=== PATIENT | female | born 1995 | race Caucasian/White ===

== ENCOUNTER 2022-02-12 03:49 | Outpatient (CLI) | payer OTHER, SELFPAY ==
[2022-02-13 10:29] LABS: Lyme Ab w Rflx to Lyme Confirm Negative (Negative)
[2022-02-14 10:37] LABS: Anaplasma phagocytophilum Negative (Negative); B. miyamotoi PCR Negative (Negative); Babesia divergens/MO-1 Negative (Negative); Babesia duncani Negative (Negative); Babesia microti Negative (Negative); Ehrlichia chaffeensis Negative (Negative); Ehrlichia ewingii/canis Negative (Negative); Ehrlichia muris eauclairensis Negative (Negative)
== END 2022-02-12 03:50 | disposition home or self-care (01) ==
LOC: LOS 03:49
PROVIDERS: Visit Provider Nurse Practitioner Family
DX: A69.20 Lyme disease, unspecified (principal)
CPT/HCPCS: 36415; 87798; 86618

== ENCOUNTER 2022-03-19 09:57 | Outpatient (REF) | payer OTHER, SELFPAY ==
--- NOTE | 2022-03-19 08:30 | PAPFT_PTH ---
PATIENT: Davina Link LOC: [facility] U#:[id number] AGE/SX: 26/F ROOM: RE03/19/[address]: Swati Sagastume DO : 1995 BED: DIS: 03/19/2022 SPEC #: [id number] RECD: 03/19/22 12:53 STATUS: JYOTI REQ #: [id number] PRIYANK: 03/19/22 08:[address]: Swati Sagastume DEPT: [facility] Cytology RECD BY: Luiza Shea ENTERED: 03/19/22 12:53 SP TYPE: PAPFT OTHR DR: Unknown,Unknown Tissues: 1 - CX/ENDOCX FOR PAP SMEARS Procedures: PAP THIN PREP/UVM Screening Comments: [id number] (CHLAMYDIA/GC)
[2022-03-20 14:50] LABS: Chlamydia Result Negative (Negative); GC Result Negative (Negative)
== END 2022-03-19 09:58 | disposition home or self-care (01) ==
LOC: LBN 09:57
PROVIDERS: Visit Provider Obstetrics & Gynecology
DX: Z11.3 Encounter for screening for infections with a predominantly sexual mode of transmission (principal); Z12.4 Encounter for screening for malignant neoplasm of cervix; R87.612 Low grade squamous intraepithelial lesion on cytologic smear of cervix (LGSIL)
CPT/HCPCS: 87491; 87591; 88142

== ENCOUNTER 2022-04-23 10:51 | Outpatient (REF) | payer OTHER, SELFPAY ==
--- NOTE | 2022-04-23 10:00 | ENDO_PTH ---
PATIENT: Davina Link LOC: LBN U#:[id number] AGE/SX: 26/F ROOM: RE04/23/[address]: Swait Sagastume DO : 1995 BED: DIS: 04/23/2022 SPEC #: [id number] RECD: 04/23/22 13:00 STATUS: JYOTI REQ #: [id number] PRIYANK: 04/23/22 10:[address]: Swati Sagastume DEPT: Surgical Specimen RECD BY: Luiza Shea ENTERED: 04/23/22 13:00 SP TYPE: Endo OTHR DR: Unknown,Unknown Tissues: 1 - ENDOCERVICAL BX/CURRETTE 2 - CERVICAL BIOPSY Procedures: GROSS AND MICRO LEVEL 4 Comments: [id number]
--- OUTSIDE RECORDS SUMMARY | 2022-04-23 10:55 | XMS_ITS | Encounter Summary ---
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
--- OUTSIDE RECORDS SUMMARY | 2022-04-23 10:55 | XMS_ITS | Encounter Summary ---
:1995 Author Organization [facility] Address [address] [place] [address] Care Team Providers Name Role Phone Davina Johnson MD Primary Care Provider [phone] Encounter Details Date Type Department Care Team Description 03/19/2022 Lab Requisition [facility] Swati Sagastume Encounter for other Pathology & [address] [place] [address] Dr general examination Laboratory Medicine [facility] [address] [address] [facility] [phone] [place] [address] (Work) [phone] Social History Tobacco Use Types Packs/Day Years Used Date Never Smoker Smokeless Tobacco: Never Used Alcohol Use Standard Drinks/Week Comments Yes 0 (1 standard drink = 0.6 oz pure alcoho l) rarely Alcohol Habits Answer Date Recorded How often do you have a drink containing alcohol? Not asked How many drinks containing alcohol do you have on a typical Not asked day when you are drinking? How often do you have six or more drinks on one occasion? No t asked Comment: rarely 03/16/2019 Sex Assigned at Date Recorded Not on file documented as of this encounter Plan of Treatment Not on filedocumented as of this encounter Procedures Procedure Name Priority Date/Time Associated Diagnosis Comme nts PAP TEST Today 03/19/2022 8:30 Encounter for other Resul ts for this EDT general examination procedur e are in the results section. CHLAMYDIA/N. Today 03/19/2022 8:30 Results for this GONORRHOEAE EDT procedure are i n AMPLIFIED RNA, the results THINPREP section. documented in this encounter Results PAP TEST (03/19/2022 8:30 EDT) Specimens A. Cervix and/or [facility] Endocervix , ThinPrep CENTER Imaging System with LABORATORY Manual Evaluation SERVICES Specimen Adequacy Satisfactory for [facility] Evaluation - CENTER transformation zone LABORATORY component present SERVICES General Epithelial Cell [facility] Categorization Abnormality CENTER LABORATORY SERVICES Descriptive Squamous Cell [facility] Diagnosis Abnormality - Low CENTER grade squamous LABORATORY intraepithelial SERVICES lesion (LSIL). Educational Comments [facility] recommends following t he ASCP's management guidelines which may be found at www.ascp.org [facility] Attestation By the signature below, the attending physician certifies that they have personally conducted a gross and/or microscopic [facility] Electronically examination of the described specimens and rendered or confirmed the above diagnosis. CENTER signed by ZINA Sweet MD on SERVICES 03/26/2022 at 09 32 Clinical History See below [facility] Performing Lab [facility] LAB [facility] Scanned Images [facility] Specimen Pap Test - Cervix and/or Endocervix Performing Organization Address City/State/ZIP Code Phon e Number [facility] [address] [place] [address] SERVICES CHLAMYDIA/N. GONORRHOEAE AMPLIFIED RNA, THINPREP (03/19/2022 8:30 EDT) Pathologist Sig nature Gonococcus Result Negative Negative [facility] Chlamydia Result Negative Negative [facility] Specimen Pap Test - Cervix and/or Endocervix Performing Organization Address City/State/ZIP Code Phon e Number [facility] [address] [place] [address] SERVICES documented in this encounter Visit Diagnoses Diagnosis Encounter for other general examination documented in this encounter Care Teams Certified Nurse Aide Relationship Specialty Start Date End Date Davina Johnson MD PCP - General 08/19/20 documented as of this encounter
--- OUTSIDE RECORDS SUMMARY | 2022-04-23 10:55 | XMS_ITS | Encounter Summary ---
:1995 Author Organization [facility] Address [address] [place] [address] Care Team Providers Name Role Phone Unknown, Provider Primary Care Provider Reason for Referral Consult (3 - 10 Business Days) - Denied Specialty Diagnoses / Procedures Referred By Contact Refer red To Contact Orthopedic Surgery Diagnoses Laceration of left index finger without foreign body without damage to nail, initial encounter Cassius Thakur [facility] NABEEL Cruz Extremity [id number] [place] [address] Referral ID Status Reason Start Date Expiration Date Visits V isits Requested Authorized [id number] Denied Specialty 03/16/2019 1 0 Services Required Question Answer Reason for Request: finger laceration, possible digital nerve injury Reason for Visit Reason Comments Laceration Patient arrives s/p lac to r ing finger on left hand sustained while depitting an avacado. lac is approx 1cm in length. 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 Washed with soap and wa ter in triage and applied pressure bandage. VSS. NAD. Encounter Details Date Type Department Care Team Description 03/16/2019 Emergency [facility] Cassius Thakur PA-C [address] [facility] [address] [place] [address] Laceration of left index Emergency Department - Emergency, Default, MD finger without foreign [facility] [place] body without damage to [address] nail, [place] [address] (Primary Dx) [phone] Social History Tobacco Use Types Packs/Day Years [...] on file documented as of this encounter Last Filed Vital Signs Vital Sign Reading Time Taken Comments Blood Pressure 126/71 03/16/2019 2224 EDT Pulse - - Temperature 37 ??C (98.6 ??F) 03/16/2019 2224 EDT Respiratory Rate 18 03/16/2019 2224 EDT Oxygen Saturation 100% 03/16/2019 2224 EDT Inhaled Oxygen Concentration - - Weight 54.4 kg (120 lb) 03/16/2019 2224 EDT Height 167.6 cm (5' 6) 03/16/2019 2224 EDT Body Mass Index 19.37 03/16/2019 2224 EDT documented in this encounter Discharge Diagnoses Diagnosis S61.211A Laceration without foreign body of left index finger without damage to nail, initial encounter-S61.211A[ICD-10-CM] W45.8XXA Other foreign body or object en tering through skin, initial encounter-W45.8XXA[ICD-10-CM] documented in this encounter Discharge Instructions InstructionsMoeros Moore, KISHORE Borrego - 03/16/[address] for the first 12 hours. Wash area daily with soap and water. Apply vaseline daily until sutures are removed. Return to the ER if the area becomes red, painful, swollen, has pus/foul smelling discharge, or if any fever. Suture removal in 7 days Orthopedics will call you for follow up appointment Call your doctor tomorrow to make sure you have had a tetanus shot in the past 10 years Once sutures are removed avoid sun exposure to the area. You can apply sunscreen daily. It will exru74-57 months for the final scar to form. During that time of continued healing you may experience mild tingling, itchiness, or even mild discomfort over the wound site documented in this encounter Medications at Time of Discharge Medication Sig Dispensed Refills Start Date End Date LORazepam (ATIVAN) 1 mg Take 1 mg by mouth 0 tablet every 4 hours as needed for Anxiety. paroxetine (PAXIL) 20 mg Take 10 mg by mouth 0 tablet daily. documented as of this encounter Discharge Disposition Disposition Code Departure Means Destination Home or Self Care Car Home documented in this encounter ED Notes Blaze Moore, KISHORE Borrego - 03/16/2019 2333 EDT DOS: 03/16/2019 Chief Complaint Patient presents with ??? Laceration Patient arrives s/p lac to ring finger on left hand sustained while depitting an avacado. lac is approx 1cm in length. 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 Washed with soap and water in triage and applied pressure bandage. VSS. NAD. HPI The patient is a 23 y.o. female who presents today with Laceration (Patient arrives s/p lac to ring finger on left hand sustained while depitting an avacado. lac is approx 1cm in length. 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 Washed with soap and water in triage and applied pressure bandage. VSS. NAD. ) HPI 23 yo female with a left index finger lac she sustained just prior to arrival while slicing an avocado. She notes some tingling distal to the wound. She has no weakness. Unsure of last tetanus. Review of Systems Review of Systems see above The patient's past medical, family and social history was reviewed and updated as needed. No Known Allergies Vital Signs Temp: 37 ??C (98.6 ??F) Heart Rate: 67 BPM Resp: 18 SpO2: 100 % BP: 126/71 BP Device: BP Machine Patient Position: Sitting BP Cuff Location: Right arm O2 Device: None (Room air) Physical Exam Alert oriented, appears comfortable Left 4th finger with 1 cm laceration along radial aspect. No tendon injury. ?nerve laceration. Sensation distally is diminished. Strength is 5/5 at dip and pip joints. RESULTS EKG orders: None Radiology orders: None Procedures Area prepped with betadine. Lidocaine 3cc Used for anesthesia with a digital block. . Wound explored, no foreign body identified. Wound irrigated with normal saline under high pressure syringe. Wound successfully closed with 3, 5.0 Nylon sutures applied with simple interrupted technique. Bacitracin and dressing applied by the nursing staff. ED COURSE A medical screening exam was performed. Patient with a finger laceration. She has no signs of tendoninjury but may have a digital nerve injury. Wound was closed. Ortho referral placed for further eval. She will call her pcp to ensure tetanus is up to date. Wound care and return precautions were discussed. Final diagnoses: Laceration of left index finger without foreign body without damage to nail, initial encounter DISPOSITION: No disposition on file The patient's pain was managed to an adequate level weighing risk vs. benefit of further medications. Upon departure from the Emergency Department, the patient's pain was 0 on a zero to ten scale. Any further pain treatment will be at the discretion of the provider following up with the patient based on their clinical assessment. Condition at departure from the Emergency Department: Stable PCP: Doctor Unknown BEN Madrigal was available for supervision. 03/16/2019 23:33 No flowsheet data found. documented in this encounter Plan of Treatment Scheduled Referrals Name Type Priority Associated Order Schedule Diagnoses AMB CONS/FOLLOW UP Outpatient Referral Routine Laceration of l eft Ordered: ORTHOPEDICS index finger 03/16/2019 without foreign body without damage to nail, initial encounter documented as of this encounter Visit Diagnoses Diagnosis Laceration of left index finger without foreign body without damage to nail, initial encounter - Primary documented in this encounter Historical Medications This list may reflect changes made after this encounter. Medication Sig Dispensed Refills Start Date End Date LORazepam (ATIVAN) 1 mg Take 1 mg by mouth 0 tablet every 4 hours as needed for Anxiety. paroxetine (PAXIL) 20 mg Take 10 mg by mouth 0 tablet daily. added in this encounter Care Teams Joiner Relationship Specialty Start Date End Date Unknown, Provider, PCP - General 06/23/18 08/18/20 documented as of this encounter
--- OUTSIDE RECORDS SUMMARY | 2022-04-23 10:55 | XMS_ITS | Encounter Summary ---
:1995 Author Organization Health system Address [address] [place] [address] Care Team Providers Name Role Phone Davina Johnson MD Primary Care Provider [phone] Encounter Details Date Type Department Care Team Description 02/12/2022 Lab Requisition [facility] Outr Resulting Lab, Pathology & Laboratory Provider [facility] [address] [place] [address] Social History Tobacco Use Types Packs/Day Years [...] Name Priority Date/Time Associated Diagnosis Comme nts LYME AB Routine 02/12/2022 8:48 EDT Results for this procedure are i n the results section . documented in this encounter Results LYME AB (02/12/2022 8:48 EDT) Pathologist Sig nature Lyme Ab Negative Negative [facility] LABORATOR Y SERVICES Specimen Blood - Venous blood (substance) Performing Organization Address City/State/ZIP Code Phon e Number [facility] [address] [place] [address] SERVICES documented in this encounter Visit Diagnoses Not on filedocumented in this encounter Care Teams Aircraft Engine Mechanic Overhaul Relationship Specialty Start Date End Date Davina Johnson MD PCP - General 08/19/20 documented as of this encounter
--- OUTSIDE RECORDS SUMMARY | 2022-04-23 10:55 | XMS_ITS | Encounter Summary ---
:[address] [facility] Address [address] [place] [address] Care Team Providers Name Role Phone Davina Johnson MD Primary Care Provider [phone] Reason for Visit Reason Onset Date Comments Other 09/09/2020 Referral Encounter Details Date Type Department Care Team Description 09/09/2020 Telephone [facility] Unknown, Provider, Oth er (Referral) Neurology - S Luly escoto MD [address] [place] [address] [phone] Social History Tobacco Use Types Packs/Day Years [...] Assigned at Date Recorded Not on file COVID-19 Exposure Response Date Recorded In the last month, have you been in contact with No / Unsure 09/03/2020 2:17 EST someone who was confirmed or suspected to have Coronavirus / COVID-19? documented as of this encounter Miscellaneous Notes Telephone Encounter - Lalita Doran - 09/09/2020 1600 EST Spoke with Gary wanted to verify referral was received. It was received in April NPV sent patientnever mailled back. Explained presently not taking any new patients until December. documented in this encounter Plan of Treatment Not on filedocumented as of this encounter Visit Diagnoses Not on filedocumented in this encounter Care Teams Vba Programmer Relationship Specialty Start Date End Date Davina Johnson MD PCP - General 08/19/20 documented as of this encounter
--- OUTSIDE RECORDS SUMMARY | 2022-04-23 10:55 | XMS_ITS | Encounter Summary ---
:1995 Author Organization [facility] Address [address] [place] [address] Care Team Providers Name Role Phone Davina Johnson MD Primary Care Provider [phone] Encounter Details Date Type Department Care Team Description 09/03/2020 Travel Social History Tobacco Use Types Packs/Day Years [...] / COVID-19? documented as of this encounter Plan of Treatment Not on filedocumented as of this encounter Visit Diagnoses Not on filedocumented in this encounter Care Teams Manager Oncology Relationship Specialty Start Date End Date Davina Johnson MD PCP - General 08/19/20 documented as of this encounter
--- OUTSIDE RECORDS SUMMARY | 2022-04-23 10:55 | XMS_ITS | Encounter Summary ---
:1995 Author Organization [facility] Address [address] [place] [address] Care Team Providers Name Role Phone Unknown, Provider Primary Care Provider Davina Johnson MD Primary Care Provider [phone] Encounter Details Date Type Department Care Team Description 05/22/2020 Lab Requisition [facility] Tulio Tavarez, Encounter for Pathology & IT INFRASTRUCTURE CONSULTANT gynecological Laboratory Medicine [address] [facility] - [address] (routine) without [address] [facility] [address] abnormal findings [address] [address] Social History Tobacco Use Types Packs/Day Years [...] file documented as of this encounter Discharge Disposition Disposition Code Departure Means Destination Home or Self Care documented in this encounter Plan of Treatment Not on filedocumented as of this encounter Procedures Procedure Name Priority Date/Time Associated Diagnosis Comme nts PAP TEST Today 05/22/2020 14:21 Encounter for Results fo r this EDT gynecological procedure are in examination (general) the re sults (routine) without section. abnormal findings [ICD-10-CM] documented in this encounter Results PAP TEST (05/22/2020 14:21 EDT) Specimens A. Cervix and/or [facility] Endocervix , ThinPrep CENTER Imaging System with LABORATORY Manual Evaluation SERVICES Specimen Adequacy Satisfactory for [facility] Evaluation - CENTER transformation zone LABORATORY component present SERVICES General Negative for [facility] intraepithelial COMPTON lesion or malignancy LABORATORY SERVICES Attestation . [facility] Electronically CENTER signed by Devin oliver LABORATORY EVARISTO Ghosh(A SCP) SERVICES on 06/03/2020 at 0815 Scanned Images [facility] SERVICES Specimen Pap Test - Cervix and/or Endocervix Performing Organization Address City/State/[facility] Code Phon e Number [facility] [address] [place] [address] SERVICES documented in this encounter Visit Diagnoses Diagnosis Encounter for gynecological examination (general) (routine) without abnormal findings documented in this encounter Care Teams Upsetting Machine Operator Relationship Specialty Start Date End Date Unknown, Provider, PCP - General 06/23/18 08/18/20 Davina Johnson MD PCP - General 08/19/20 documented as of this encounter
--- OUTSIDE RECORDS SUMMARY | 2022-04-23 10:55 | XMS_ITS | Encounter Summary ---
:1995 Author Organization [facility] Address [address] [place] [address] Care Team Providers Name Role Phone Unknown, Provider Primary Care Provider Reason for Visit Auth/Cert Specialty Diagnoses / Procedures Referred By Contact Refer red To Contact Referral ID Status Reason Start Date Expiration Date Visits Requ ested Visits Authorized [id number] 1 1 Encounter Details Date Type Department Care Team Description 08/08/2020 - Hospital Encounter [facility] Cassie Joyce 08/13/2020 Inpatient Psychiatry MD [facility] [address] [place] [address], [facility] [address] [place] [address] (Wo rk) Social History Tobacco Use Types [...] on file documented as of this encounter Medications at Time of Discharge Medication Sig Dispensed Refills Start Date End Date LORazepam (ATIVAN) 1 mg Take 1 mg by mouth 0 tablet every 4 hours as needed for Anxiety. paroxetine (PAXIL) 20 mg Take 10 mg by mouth 0 tablet daily. documented as of this encounter Discharge Disposition Disposition Code Departure Means Destination Home or Self [place] documented in this encounter Plan of Treatment Not on filedocumented as of this encounter Procedures Procedure Name Priority Date/Time Associated Diagnosis Comme nts ORDERS - SCANNED 10/08/2020 11:51 EST PATHOLOGY - SCANNED 10/08/2020 11:50 EST ECG REPORT - 10/08/2020 11:50 SCANNED EST ECG REPORT - 09/30/2020 9:39 EST SCANNED EKG 12-LEAD 08/09/2020 9:49 EST Results for this procedure are i n the results section. documented in this encounter Results PATHOLOGY - SCANNED (10/08/2020 11:50 EST) Specimen Narrative This result has an attachment that is no t available. EKG 12-LEAD (08/09/2020 9:49 EST) Specimen Narrative [facility] EKG - 09/30/2020 9:34 EST ? [facility] ? Test Date: ?2020-08-09 Pat Name: ? YELENA GOMES ?Department: ?? [facility] ? Room: ? Gender: ? Female ? Check Services Clerk: ?? [id number] : ?1995 ? Requested By: MARY TENA MD Order Number: ?Reading : ?? BEVERLEY COPELAND MD ? Measurements Intervals ?[place] ? Rate: ? 69 ? P: ?67 NV: ? 133 ?QRS: ?79 QRSD: ? 76 ? T: ?60 QT: ? 400 ? QTc: ?430 ? Interpretive Statements SINUS RHYTHM Automated Interpretation. ??Provider Int erpretation to follow. No previous ECG available for comparison I reviewed the tracing and have either a greed or edited the findings in this report. Electronically Signed On 9:34:59 EST by BEVERLEY COPELAND MD. Procedure Note Beverley Copeland MD - 09/30/2020 [facility] Test Date: 2020-08-09 Pat Name: YELENA GOMES Department: EP 6 Room: Gender: Female Check Services Clerk: [id number] : 1995 Requested By: MARY SCHMIDT MD Order Number: Reading MD: BEVERLEY MOYA MD Measurements Intervals [place] Rate: 69 P: 67 NV: 133 QRS: 79 QRSD: 76 T: 60 QT: 400 QTc: 430 Interpretive Statements SINUS RHYTHM Automated Interpretation. Provider Inter pretation to follow. No previous ECG available for comparison I reviewed the tracing and have either a greed or edited the findings in this report. Electronically Signed On 9:34:59 EST by BEVERLEY COPELAND MD. Performing Organization Address City/State/ZIP Code Phon e Number [facility] EKG documented in this encounter Visit Diagnoses Not on filedocumented in this encounter Orders Procedures Count Last Ordered Date First Ordered Date ECG REPORT - SCANNED 2 10/15/2020 09/30/2020 Admission Count Last Ordered Date First Ordered Date ORDERS - SCANNED 1 10/15/2020 documented in this encounter Care Teams Jig Boring Machine Operator For Metal Relationship Specialty Start Date End Date Unknown, Provider, PCP - General 06/23/18 08/18/20 documented as of this encounter
--- OUTSIDE RECORDS SUMMARY | 2022-04-23 10:55 | XMS_ITS | Encounter Summary ---
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 section. POCT CSN BARCODE STAT 09/03/2020 4:53 EST Resu lts for this URINE PREG TEST procedure ar e in the results section. documented in this encounter Results COVID-19 TEST [facility] LAB PCR (09/03/2020 6:21 EST) Specimen Swab - Entire nasopharynx (body structur e) Performing Organization Address [facility] Phon e Number [facility] [address] [place] [address] SERVICES COVID-19 TESTING (09/03/2020 6:21 EST) COVID-19 rt-PCR Negative Negative [facility] Result Comment: [facility] This test has not been FDA c leared or approved. This test has been authorized by FDA under an EUA for use by authorized laboratories. This test has been authorized only for detection of nucleic acid fro SERVICES m 2019-nCoV, not for any oth er viruses or pathogens. This test is only authorized for the duration of the declaration that circumstances exist justifying the authorization of emergency use of in vitro d iagnostic tests for detectio n and/or diagnosis of 2019-nCoV under section 564(b)(1) of Act, 21 U.S.C ?? 360bbb-3(b) (1), unless the authorization is terminated or revoked sooner. Negative results do not prec lude 2019-nCoV infection and should not be used as the sole basis for treatment or other patient management decisions. Negative results must be combined with clinical observa tions, patient history, and epidemiological informatio n. Performed on the Pegg'd Ball Fusion instrument Performing Lab Ball [facility] Lab [facility] SERVICES Specimen Swab - Entire nasopharynx (body structur e) Performing Organization Address [facility] Phon e Number [facility] [address] [place] [address] SERVICES POCT CSN BARCODE URINE PREG TEST (09/03/2020 4:53 EST) Pathologist Sig nature Hold Hold [facility] Specimen Urine - Urine specimen collection, clean catch (procedure) Performing Organization Address [facility] Phon e Number [facility] [address] [place] [address] SERVICES documented in this encounter Visit Diagnoses Diagnosis Encounter for psychological evaluation - Primary Psychosis, unspecified psychosis type (H CC-CMS) (HCC) documented in this encounter Historical Medications This list may reflect changes made after this encounter. Medication Sig Dispensed Refills Start Date End Date OLANZapine (ZYPREXA) 5 mg Take 10 mg by mouth 0 tablet daily. added in this encounter Care Teams Clinical Research Specialist Relationship Specialty Start Date End Date Unknown, Provider, PCP - General 06/23/18 08/18/20 documented as of this encounter
--- OUTSIDE RECORDS SUMMARY | 2022-04-23 10:55 | XMS_ITS | Encounter Summary ---
:1995 Author Organization [facility] Address [address] [place] [address] Care Team Providers Name Role Phone Davina Johnson MD Primary Care Provider [phone] Reason for Visit Reason Onset Date Comments Coordination Of Care 09/18/2020 Encounter Details Date Type Department Care Team Description 09/18/2020 Telephone [facility] Kinjal Jackson Coo rdination Of Care [address] [address] [place], [facility] [place] [phone] (Wo rk) Social History Tobacco Use Types [...] on filedocumented in this encounter Care Teams Power Originator Relationship Specialty Start Date End Date Davina Johnson MD PCP - General 08/19/20 documented as of this encounter
--- OUTSIDE RECORDS SUMMARY | 2022-04-23 10:55 | XMS_ITS | Encounter Summary ---
:1995 Author Organization [facility] Address [address] [place] [address] Care Team Providers Name Role Phone Unknown, Provider Primary Care Provider Encounter Details Date Type Department Care Team Description 06/23/2018 Results Only [facility]- Berna Garcia PA-C [phone] [address] [place], [place] [address] (Wo rk) Social History Tobacco Use Types Packs/Day Years Used Date Never Assessed Sex Assigned at Date Recorded Not on file documented as of this encounter Plan of Treatment Not on filedocumented as of this encounter Procedures Procedure Name Priority Date/Time Associated Comments Diagnosis MUCOCUTANEOUS VIRUS Routine 06/23/2018 15:22 Resu lts for this DETECTION EDT procedure are i n the results section. CHLAMYDIA/N. Routine 06/23/2018 15:22 Results for this GONORRHOEAE AMPLIFIED EDT proced ure are in RNA the results section. ZZVAGINITIS EXAM Routine 06/23/2018 15:22 Results for this EDT procedure are i n the results section. documented in this encounter Results VAGINITIS EXAM (06/23/2018 15:22 EDT) Gram Smear Result No yeast seen. [facility] Gram Smear Result Smear consistent [facility] with BACTERIAL LABORATORY VAGINOSIS. SERVICES Gram Smear Result Many [facility] Polys LABORATORY SERVICES Result No Trichomonas [facility] antigen detected. LABORATORY SERVICES Specimen Vagina Performing Organization Address City/State/ZIP Code Phon e Number [facility] [address] [place] [address] SERVICES MUCOCUTANEOUS VIRUS DETECTION (06/23/2018 15:22 EDT) Result HERPES SIMPLEX VIRUS TYPE [facility] [address] detected by PCR. LABORATORY SERVICES Result [facility] SERVICES Result No Herpes simplex Virus [facility] Type 1 detected by PCR. LABORATORY SERVIC ES Result (Note) [facility] This test was developed and its performance [facility]bi [facility] SERVICES determined by Laboratory Medicine and Pathology, [facility]. This test has not been cleared or approved by the U.S. Food and Drug Administration. FDA does not re quire this test to go through premarket FDA review. This test is used for clinical purposes. It should not be regarded as investigational or for research. This laboratory is certified under the Clini mignon Laboratory Improvement Amendments of 1988 (CLIA) as qualified to perform high complexity clinical laboratory testing. Specimen Labia Performing Organization Address City/State/ZIP Code Phon e Number [facility] [address] [place] [address] SERVICES CHLAMYDIA/N. GONORRHOEAE AMPLIFIED RNA (06/23/2018 15:22 EDT) Pathologist Sig nature Chlamydia Result Negative [facility] GC Result Negative [facility] SERVICES Specimen Vagina Performing Organization Address City[facility] Phon e Number [facility] [address] [place] [address] SERVICES documented in this encounter Visit Diagnoses Not on filedocumented in this encounter Care Teams Clinical Veterinarian Relationship Specialty Start Date End Date Unknown, Provider, PCP - General 06/23/18 08/18/20 documented as of this encounter
--- OUTSIDE RECORDS SUMMARY | 2022-04-23 10:55 | XMS_ITS | Clinical Summary ---
:1995 Author Organization [facility] Address [address] [place] [address] Care Team Providers Name Role Phone Davina Johnson MD Primary Care Provider [phone] Allergies No known active allergies Medications Medication Sig Dispensed Refills Start Date End Date Status paroxetine (PAXIL) 20 Take 10 mg by 0 Active mg tablet mouth daily. LORazepam (ATIVAN) 1 Take 1 mg by mouth 0 Active mg tablet every 4 hours as needed for Anxiety. OLANZapine (ZYPREXA) 5 Take 10 mg by 0 Active mg tablet mouth daily. Encounters Date Type Specialty Care Team Description 03/19/2022 Lab Requisition Clinical Laboratory Swati Sagastume nter for other general examina tion 02/12/2022 Lab Requisition Clinical Laboratory Outr Resulting Lab, Provider from Last 3 Months Medical History Medical History Date Comments Psychiatric problem Social History Tobacco Use Types Packs/Day Years [...] Assigned at Date Recorded Not on file Last Filed Vital Signs Vital Sign Reading Time Taken Comments Blood Pressure 126/68 09/03/2020 0920 EST Pulse 90 09/03/2020 0920 EST Temperature 36.2 ??C (97.1 ??F) 09/03/2020 0311 EST Respiratory Rate 14 09/03/2020 0311 EST Oxygen Saturation 99% 09/03/2020 0920 EST Inhaled Oxygen Concentration - - Weight 53.5 kg (118 lb) 09/03/2020 0216 EST Height 167.6 cm (5' 6) 09/03/2020 0216 EST Body Mass Index 19.05 09/03/2020 0216 EST Plan of Treatment Health Maintenance Due Date Last Done Comments Hepatitis C Screen 1995 COVID-19 Vaccine (#1) 06/15/1997 Procedures Procedure Name Priority Date/Time Associated Diagnosis Comme nts PAP TEST Today 03/19/2022 8:30 Encounter for other Resul ts for this EDT general examination procedur e are in the results section. CHLAMYDIA/N. Today 03/19/2022 8:30 Results for this GONORRHOEAE EDT procedure are i n AMPLIFIED RNA, the results THINPREP section. LYME AB Routine 02/12/2022 8:48 Results for this EDT procedure are i n the results section. from Last 3 Months Results PAP TEST (03/19/2022 8:30 EDT) Specimens A. Cervix and/or [facility] MEDICAL Endocervix , ThinPrep CENTER Imaging System with LABORATORY Manual Evaluation SERVICES Specimen Adequacy Satisfactory for [facility] MEDICAL Evaluation - CENTER transformation zone LABORATORY component present SERVICES General Epithelial Cell [facility] MEDICAL Categorization Abnormality CENTER LABORATORY SERVICES Descriptive Squamous Cell [facility] MEDICAL Diagnosis Abnormality - Low CENTER grade squamous LABORATORY intraepithelial SERVICES lesion (LSIL). Educational Comments [facility] recommends following t he ASCP's management guidelines which may be found at www.ascp.org [facility] SERVICES Attestation By the signature below, the attending physician certifies that they have personally conducted a gross and/or microscopic [facility] Electronically examination of the described specimens and rendered or confirmed the above diagnosis. CENTER signed by ZINA Sweet MD on SERVICES 03/26/2022 at 09 32 Clinical History See below [facility] LABORATORY SERVICES Performing Lab [facility] LAB [facility] LABORATORY SERVICES Scanned Images [facility] SERVICES Specimen Pap Test - Cervix and/or Endocervix Performing Organization Address City/State/ZIP Code Phon e Number [facility] [address] [place] [address] SERVICES CHLAMYDIA/N. GONORRHOEAE AMPLIFIED RNA, THINPREP (03/19/2022 8:30 EDT) Pathologist Sig nature Gonococcus Result Negative Negative [facility] SERVICES Chlamydia Result Negative Negative [facility] SERVICES Specimen Pap Test - Cervix and/or Endocervix Performing Organization Address City/State/ZIP Code Phon e Number [facility] [address] [place] [address] SERVICES LYME AB (02/12/2022 8:48 EDT) Pathologist Sig nature Lyme Ab Negative Negative [facility]ORATOR Y SERVICES Specimen Blood - Venous blood (substance) Performing Organization Address City/State/ZIP Code Phon e Number [facility] [address] [place] [address] SERVICES from Last 3 Months Insurance Payer Benefit Plan / Subscriber ID Effective Phone Address T ype Group Dates [facility] [id number] 2021-Pre [phone] [facility] [facility] sent [phone] [place] [address] Davina Link Personal/Family Self [address] (Home) [place] [address] Advance Directives For more information, please contact: [phone] Documents on File Type Date Recorded 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
--- OUTSIDE RECORDS SUMMARY | 2022-04-23 10:55 | XMS_ITS | Encounter Summary ---
:1995 Author Organization [facility] Address [address] [place] [address] Care Team Providers Name Role Phone Unknown, Provider Primary Care Provider Reason for Visit Auth/Cert Specialty Diagnoses / Procedures Referred By Contact Refer red To Contact Referral ID Status Reason Start Date Expiration Date Visits Requ ested Visits Authorized [id number] 1 1 Encounter Details Date Type Department Care Team Description 07/24/2020 - Hospital Encounter [facility] Unknown, 07/30/2020 Inpatient Psychiatry ProviderAnna Unit [phone] [address] [facility] ([place]) [place] [address] [phone] Social History Tobacco Use Types Packs/Day Years [...] Code Departure Means Destination Home or Self Long-Term documented in this encounter Plan of Treatment Not on filedocumented as of this encounter Procedures Procedure Name Priority Date/Time Associated Diagnosis Comme nts PATHOLOGY - SCANNED 09/05/2020 16:56 EST ORDERS - SCANNED 09/05/2020 16:56 EST documented in this encounter Results PATHOLOGY - SCANNED (09/05/2020 16:56 EST) Specimen Narrative This result has an attachment that is no t available. documented in this encounter Visit Diagnoses Not on filedocumented in this encounter Orders Admission Count Last Ordered Date First Ordered Date ORDERS - SCANNED 1 09/05/2020 documented in this encounter Care Teams Black Topper Relationship Specialty Start Date End Date Unknown, Provider, PCP - General 06/23/18 08/18/20 documented as of this encounter
--- OUTSIDE RECORDS SUMMARY | 2022-04-23 10:55 | XMS_ITS | Encounter Summary ---
:1995 Author Organization [facility] Address [address] [place] [address] Care Team Providers Name Role Phone Unknown, Provider Primary Care Provider Encounter Details Date Type Department Care Team Description 03/16/2019 Travel Social History Tobacco Use Types Packs/Day [...] on filedocumented in this encounter Care Teams Sales Special Agent Relationship Specialty Start Date End Date Unknown, Provider, PCP - General 06/23/18 08/18/20 documented as of this encounter
== END 2022-04-23 10:52 | disposition home or self-care (01) ==
LOC: LBN 10:51
PROVIDERS: Visit Provider Obstetrics & Gynecology
DX: N87.9 Dysplasia of cervix uteri, unspecified (principal)
CPT/HCPCS: 88305

== ENCOUNTER 2022-10-05 18:44 | Outpatient (REF) | payer OTHER, SELFPAY ==
[2022-10-05 21:04] LABS: Bilirubin Negative (Negative); Blood Negative (Negative); Clarity Clear (Clear); Glucose Negative (Negative); Ketones Negative (Negative); Leukocyte Esterase Negative (Negative); Nitrite Negative (Negative); Specific Gravity <= 1.005 (1.005-1.025); Urobilinogen 0.2 EU/dL (Up TO 0.2); pH 5.5 (5-8)
== END 2022-10-05 18:45 | disposition home or self-care (01) ==
LOC: LBN 18:44
PROVIDERS: Visit Provider Nurse Practitioner Family
DX: R39.9 Unspecified symptoms and signs involving the genitourinary system (principal)
CPT/HCPCS: 81003

== ENCOUNTER 2023-02-05 16:46 | Outpatient (REF) | payer OTHER, SELFPAY ==
[2023-02-05 21:08] LABS: Bilirubin Negative (Negative); Blood Trace-intact (Negative); Clarity Clear (Clear); Glucose Negative (Negative); Ketones Negative (Negative); Leukocyte Esterase Negative (Negative); Nitrite Negative (Negative); Urobilinogen 0.2 mg/dL (Up to 0.2); pH 7.5 (5-8)
[2023-02-05 21:36] LABS: Bacteria Few HPF (Negative); Crystals Negative HPF (Negative); Epithelial Cells Few HPF (Negative); RBC 0-2 HPF (0-2)
[2023-02-05 21:37] LABS: C & S Indicated? C&S Done As Ordered; Casts Negative LPF (Negative); Mucus Negative (Negative)
== END 2023-02-05 16:47 | disposition home or self-care (01) ==
LOC: NCHCN 16:46
PROVIDERS: Visit Provider Family Medicine
DX: R32 Unspecified urinary incontinence (principal)
CPT/HCPCS: 87077; 81003; 81015; 87086; 87186

== ENCOUNTER 2023-02-17 09:25 | Outpatient (REF) | payer OTHER, SELFPAY | END 2023-02-17 09:26 | disposition home or self-care (01) | LOC: NCHCN 09:25 | PROVIDERS: Visit Provider Family Medicine | DX: R35.0 Frequency of micturition (principal) | CPT/HCPCS: 87077; 87086; 87186 ==

== ENCOUNTER 2023-02-23 13:08 | Outpatient (REF) | payer OTHER, SELFPAY | END 2023-02-23 13:09 | disposition home or self-care (01) | LOC: NCHCN 13:08 | PROVIDERS: Visit Provider Family Medicine | DX: N30.00 Acute cystitis without hematuria (principal) | CPT/HCPCS: 87086 ==

== ENCOUNTER 2023-06-07 08:43 | Outpatient (REF) | payer OTHER, SELFPAY ==
--- NOTE | 2023-06-07 08:30 | PAPFT_PTH ---
PATIENT: Davina Link LOC: [facility] U#:[id number] AGE/SX: 27/F ROOM: RE06/07/[address]: Swati Sagastume DO : 1995 BED: DIS: 06/07/2023 SPEC #: [id number] RECD: 06/07/23 13:30 STATUS: JYOTI REQ #: [id number] PRIYANK: 06/07/23 08:[address]: Swati Sagastume DEPT: [facility] Cytology RECD BY: Luiza Shea Tissues: 1 - CX/ENDOCX FOR PAP SMEARS Procedures: PAP THIN PREP/[facility] Screening HPV DNA PROBE Comments: [id number] (CHLAMYDIA/GC)
[2023-06-08 16:50] LABS: Chlamydia Result Negative (Negative); GC Result Negative (Negative)
== END 2023-06-07 08:44 | disposition home or self-care (01) ==
LOC: LBN 08:43
PROVIDERS: Visit Provider Obstetrics & Gynecology
DX: Z11.3 Encounter for screening for infections with a predominantly sexual mode of transmission (principal); Z12.4 Encounter for screening for malignant neoplasm of cervix; Z11.51 Encounter for screening for human papillomavirus (HPV)
CPT/HCPCS: 87491; 87591; 88142; 87624

== ENCOUNTER 2023-11-12 09:18 | Emergency (ER) | payer OTHER, SELFPAY ==
[2023-11-12 09:22] VITALS: BP 146/81; PULSE 76; RESP 16; TEMP 36.4; O2SAT 100
--- NOTE | 2023-11-12 09:39 | ED.GENADUL_ITS ---
HPI General Mode of arrival: ambulatory . Date/Time Provider Initiated Documentation: 11/12/23 09:19 . Limitations to Documentation: no limitations . Information obtained by: patient . History of Present Illness 27 year old F presents to the emergency department with the chief complaint of right lower abdominal pain, described as moderate, Quality is described as sharp, and is localized to the abdomen. Patient reports no radiation. Patient started experiencing this day(s) (1) and it has been constant. No relieving factors improve symptom(s), No exacerbating factors reported . Patient notes denies fever/chills. Patient did receive the following treatments prior to arrival, none Related Data Home Medications Medication Instructions Recorded Confirmed bupropion HCl 150 mg 24 hr tablet, 150 mg PO QAM 02/09/22 11/12/23 extended release (Wellbutrin XL) levonorgestrel 17.5 mcg/24 hrs 1 device intrauterine ONCE 03/19/22 11/12/23 (5yrs) 19.5mg intrauterine device (Kyleena) hydroxyzine HCl 10 mg tablet 10 mg PO QHS PRN 04/23/22 11/12/23 sumatriptan succinate 50 mg tablet See Rx Instructions PO .COMPLEX 11/23/22 11/12/23 #15 tabs cetirizine 10 mg tablet (Allergy 10 mg PO DAILY PRN 06/07/23 11/12/23 Relief (cetirizine)) dexmethylphenidate 10 mg 10 mg PO DAILY 06/07/23 11/12/23 capsule,extended release -03 (Focalin XR) melatonin 3 mg capsule 3 mg PO HS PRN 06/07/23 11/12/23 omega 6-tzr-jsm-fish oil 300 1 cap PO DAILY 06/07/23 11/12/23 mg-1,000 mg capsule (Fish Oil) ondansetron 4 mg disintegrating 4 mg PO Q8H PRN nausea and 11/12/23 tablet vomiting #30 tabs Previous Rx's Medication Instructions Recorded sumatriptan succinate 50 mg tablet See Rx Instructions PO .COMPLEX 11/23/22 #15 tabs ondansetron 4 mg disintegrating 4 mg PO Q8H PRN nausea and 11/12/23 tablet vomiting #30 tabs Allergies Allergy/AdvReac Type Severity Reaction Status Date / Time Sulfa (Sulfonamide Allergy Verified 06/07/23 08:11 Antibiotics) General Stated Complaint: Abd Prob SAMI: 3 Review of Systems All systems reviewed & are unremarkable except as noted in HPI and below Constitutional Constitutional: Denies chills, Denies fever(s) and Denies weakness Cardiovascular Cardiovascular: Denies chest pain and Denies dyspnea Respiratory Respiratory: Denies cough and Denies dyspnea Gastrointestinal Gastrointestinal: Reports abdominal pain, Reports nausea and Denies vomiting Genitourinary Genitourinary: Denies dysuria Musculoskeletal Musculoskeletal: Denies joint swelling Integumentary/Breasts Skin/Breast: Denies rash Neurologic Neurologic: Denies weakness Exam Const General: no acute distress Orientation: alert HENMT Head: normal to inspection Ears: external ears normal General nose exam: external nose normal Mouth: moist mucous membranes Eyes General: appearance normal, both eyes and all related structures Neck Neck: normal visual inspection Resp Effort & Inspection: normal respiratory effort and able to speak in complete sentences Cardio Rate: regular rate GI Palpation: soft and tender Skin General skin exam: no rashes or lesions noted Neuro General: patient alert and patient oriented x3 Extrem General: normal to inspection Psych Mental Status: mental status grossly normal Course Vital Signs Vital signs: Vital Signs Temperature 36.4 C 11/12/23 09:22 Pulse 76 11/12/23 09:22 Respiratory Rate 16 11/12/23 09:22 Blood Pressure 146/81 H 11/12/23 09:22 Pulse Oximetry 100 11/12/23 09:22 Temperature 36.4 C 11/12/23 09:22 Temperature Source Oral 11/12/23 09:22 Pulse 76 11/12/23 09:22 Respiratory Rate 16 11/12/23 09:22 Respiratory Effort Normal, Non-Labored 11/12/23 09:25 Blood Pressure 146/81 H 11/12/23 09:22 Pulse Oximetry 100 11/12/23 09:22 Pain Level 5 11/12/23 09:22 Lab/Test Results Lab/Test Results: Laboratory Tests Range/Units 11/12/23 09:28 Serum HCG, Qual Cancelled Medical Decision Making 27-year-old female who denies prior surgical procedures on her abdomen comes in with 1 day of right-sided abdominal pain localized to the lower abdomen. She has had some nausea no vomiting, no fevers or chills. She has had some urinary frequency but denies any burning, denies any vaginal bleeding or discharge. She arrives appearing well, is oriented x 4 speaking in full sentences in no distress. She has a soft abdomen with tenderness in the right lower and right upper abdomen. No guarding or rebound. Given location of her pain, we will proceed with CBC CMP and lipase and CT abdomen pelvis to evaluate for appendicitis. labs and imaging unremarkable. Patient stable states she feels better after Toradol and Zofran, has minimal right lower quadrant tenderness. CT does show evidence of a possible diarrhea illness/enteritis, which could cause her symptoms. Given reassuring workup feel she is stable for discharge, advised to follow-up with primary care provider next week if not better, return precautions given Differential Diagnosis Differential Diagnosis: Appendicitis, pancreatitis, gastroenteritis Imaging Data Radiologic Study: Attestation: I personally reviewed and interpreted this imaging study as follows: Imaging: CT Scan Radiologist's impression: IMPRESSION: 1. Normal appendix. 2. No evidence of nephrolithiasis or obstructive uropathy. 3. Mild fluid-filled loops of small bowel which can be seen with diarrheal illness/enteritis. Please correlate clinically. Lab Data Lab results reviewed: Yes I reviewed the patient's lab results. Quality:SDOH Health Related Social Needs: No Data to Display PFSH All Active Problems (Updated 11/12/23 @ 11:08 by Parker Miller MD) Abdominal pain (Acute) IUD surveillance (Acute 05/12/22) Kyleena LGSIL on Pap smear of cervix (Acute) Pap-Colpo Neg 2021 Pap 06/07/2023 Abnormal Papanicolaou smear of cervix (Acute) Well woman exam with routine gynecological exam (Acute) Migraine (Chronic) Anxiety (Chronic) Depression (Chronic) Lyme disease, acute (Acute) Family History Other Heart disease Hyperlipidemia Social History Smoking/Tobacco Use Status: Never Smoking risk assessment performed?: Yes Alcohol Intake: never Drug use: Never Housing: apartment Do you feel safe at home: Yes Do you feel safe in your relationship?: Yes History History 0 Para Hx # Term Pregnancies Multiple births Hx # Pregnancies Ectopic pregnancies AB induced Hx Number of Living Children AB spontaneous Discharge Plan Disposition Patient Disposition: Home Condition: Stable Discharge Details Clinical Impression: Abdominal pain Primary Care Provider: Unknown,Unknown ED Provider: Parker Miller Home Meds and New Rx's Prescriptions: New ondansetron 4 mg tablet,disintegrating 4 mg PO Q8H PRN (Reason: nausea and vomiting) Qty: 30 0RF Continued Kyleena 17.5 mcg/24 hrs (5 yrs) 19.5 mg intrauterine device 1 device intrauterine ONCE Rx Instructions: as a single dose sumatriptan succinate 50 mg tablet See Rx Instructions PO .COMPLEX Qty: 15 0RF Rx Instructions: take 1 tab at onset of headache; if no relief may repeat 1 tab after at least 2 hrs; max = 2 tabs/24 hr PO dexmethylphenidate [Focalin XR] 10 mg capsule,ER biphasic 50-50 10 mg PO DAILY omega 9-gar-xpd-fish oil [Fish Oil] 300-1,000 mg capsule 1 cap PO DAILY cetirizine [Allergy Relief (cetirizine)] 10 mg tablet 10 mg PO DAILY PRN melatonin 3 mg capsule 3 mg PO HS PRN bupropion HCl [Wellbutrin XL] 150 mg tablet extended release 24 hr 150 mg PO QAM hydroxyzine HCl 10 mg tablet 10 mg PO QHS PRN Discharge Instructions Additional Instructions: Your lab work and CAT scan did not show any concerning findings at this time. There was evidence that he may be developing a diarrhea or viral gastroenteritis. You can take 1000 mg of Tylenol and 600 mg of ibuprofen every 6 hours as needed If he still lingering symptoms this week follow-up with your primary care provider If you feel more ill, have severe worsening pain, or persistent vomiting despite the ondansetron return to the emergency department for reevaluation
[2023-11-12 09:53] LABS: Bilirubin Negative (Negative); Blood Negative (Negative); Clarity Clear (Clear); Glucose Negative (Negative); Ketones Negative (Negative); Leukocyte Esterase Negative (Negative); Nitrite Negative (Negative); Urobilinogen 0.2 mg/dL (Up to 0.2); pH 7.5 (5-8)
[2023-11-12] MEDS: Ketorolac 15 MG/ML VIAL IVP (09:53)
[2023-11-12] MEDS: Ondansetron 4 MG/2 ML VIAL IVP (09:53)
[2023-11-12] MEDS: Normal Saline 1,000 ML 1000 ML IV (09:54)
[2023-11-12 10:03] LABS: Abs Immature Grans 0.01 10^3/uL (0.0-0.06); Absolute Basophil Count 0.05 10^3/uL (0.0-0.2); Absolute Eosinophil Count 0.06 10^3/uL (0.0-0.7); Absolute Lymphocyte Count 1.78 10^3/uL (1.2-3.4); Absolute Monocyte Count 0.29 10^3/uL (0.1-0.8); Absolute Neutrophil Count 2.79 10^3/uL (1.2-6.7); Eosinophils % 1.2; HCT 38.6 % (36.0-46.0); HGB 13.3 g/dL (11.2-15.7); Immature Grans % 0.2; Lymphocytes % 35.7; MCH 30.1 pg (27.0-33.0); MCHC 34.5 % (32.0-36.0); MCV 87 fL (80-95); MPV 10.5 fL (8.0-11.0); Monocytes % 5.8; Neutrophils % 56.1; Platelet Count 208 10^3/uL (130-400); RBC 4.42 10^6/uL (3.93-5.22); RDW 11.2 % (11.7-14.6); RDW-SD 35.9 fL; WBC 4.98 10^3/uL (4.4-10.8)
[2023-11-12 10:21] LABS: ALT 26 U/L (14-59); AST 18 U/L (15-37); Albumin 4.2 g/dL (3.4-5.0); Alkaline Phosphatase 51 U/L (46-116); Anion Gap 10.2 mmol/L (3-11); BUN 7 mg/dL (7-18); Bilirubin, Total 0.9 mg/dL (0.2-1.0); CO2 24.8 mmol/L (21.0-32.0); CREATININE 0.6 mg/dL (0.55-1.02); Calcium 9.2 mg/dL (8.5-10.1); Chloride 107 mmol/L (98-107); Estimated GFR 126.87 (mL/min/1.73m2); Glucose 97 mg/dL (74-106); Lipase 25 U/L (16-77); Magnesium 2.1 mg/dL (1.8-2.4); Potassium 3.7 mmol/L (3.5-5.1); Sodium 142 mmol/L (136-145); Total Protein 7.5 g/dL (6.4-8.2)
[2023-11-12] MEDS: Normal Saline - Diluent 50 ML VIAL IJ (10:28)
[2023-11-12] MEDS: Omnipaque 350 MG/ML 500 ML BTL-Imaging package 100 ML IJ (10:32)
--- NOTE | 2023-11-12 10:35 | DI.CT_ITS ---
Exam(s) CT ABDOMEN PELVIS W EXAM: CT ABDOMEN PELVIS W CLINICAL HISTORY: right sided lower abd pain TECHNIQUE: Imaging Protocol: Axial computed tomography images with coronal and sagittal reformatted images were created and reviewed. CONTRAST MATERIAL: Intravenous: Omnipaque 350 Contrast volume:100 mL Oral: No COMPARISON: No exams were available for comparison FINDINGS: ABDOMEN: Lung Bases: Normal where visualized. Liver: Normal density. No measurable mass. Portal, Superior Mesenteric, and Splenic Veins: Unremarkable. Gallbladder and Biliary Tract: No radiodense calculus or dilation. Pancreas: Normal density, no abnormal calcifications or inflammatory process. Spleen: Normal. Adrenals: No masses seen. Kidneys: Normal size, contour and axis. No radiodense stones or obstructive uropathy. No masses seen. Abdominal Aorta: Abdominal portion non-dilated. Bowel: No obstruction or bowel wall thickening. Appendix is unremarkable. There are fluid-filled loop s of small bowel present which can be seen with a diarrheal illness/enteritis. Peritoneal Cavity: No ascites, collection or mesenteric inflammatory response. No free air. Lymph Nodes: Within normal limits. Bones: Within normal limits for the patient's age. Soft Tissues: There is a small fat containing umbilical hernia. PELVIS: Bladder: Symmetric distention, no gross wall thickening. Reproductive Organs: The IUD is in good position. Lymph Nodes: Within normal limits. Bones: Within normal limits for the patient's age. IMPRESSION: 1. Normal appendix. 2. No evidence of nephrolithiasis or obstructive uropathy. 3. Mild fluid-filled loops of small bowel which can be seen with diarrheal illness/enteritis. Please correlate clinically. RADIATION DOSE DELIVERED: 742.47mGy.cm Total DLP DATA REPOSITORY: All CT scans at this facility are submitted to the National Radiology Data Registry (NRDR) Dose Index Registry (DIR) with the [employer] ([employer]). RADIATION OPTIMIZATION: All CT scans at this facility use at least one of these dose optimization te chniques: automated exposure control; mA and/or kV adjustment per patient size (includes targeted exa ms where dose is matched to clinical indication); or iterative reconstruction.
[2023-11-12 11:24] VITALS: BP 117/71; PULSE 72; RESP 18; TEMP 36.7; O2SAT 93
== END 2023-11-12 11:27 | disposition home or self-care (01) ==
PROVIDERS: Emergency Provider Emergency Medicine
DX: R10.31 Right lower quadrant pain (principal)
CPT/HCPCS: 80053; 81025; 83690; 96361; 96374; 96375; 99285; 74177; 81003; 83735; 84703; 85025; 99284; J1885; J2405

== ENCOUNTER 2024-04-19 22:23 | Outpatient (REF) | payer OTHER, SELFPAY ==
[2024-04-19 21:14] LABS: Abs Immature Grans 0.01 10^3/uL (0.0-0.06); Absolute Basophil Count 0.03 10^3/uL (0.0-0.2); Absolute Eosinophil Count 0.04 10^3/uL (0.0-0.7); Absolute Lymphocyte Count 1.14 10^3/uL (1.2-3.4); Absolute Monocyte Count 0.36 10^3/uL (0.1-0.8); Basophils % 0.8 %; Eosinophils % 1.1 %; HCT 41.7 % (36.0-46.0); HGB 14.9 g/dL (11.2-15.7); Immature Grans % 0.3 %; Lymphocytes % 30.2 %; MCH 30.8 pg (27.0-33.0); MCHC 35.7 % (32.0-36.0); MCV 86 fL (80-95); MPV 11.5 fL (8.0-11.0); Monocytes % 9.5 %; Neutrophils % 58.1 %; Platelet Count 154 10^3/uL (130-400); RBC 4.84 10^6/uL (3.93-5.22); RDW 11.3 % (11.7-14.6); RDW-SD 35.7 fL; WBC 3.78 10^3/uL (4.4-10.8)
== END 2024-04-19 22:24 | disposition home or self-care (01) ==
LOC: NCHCN 22:23
PROVIDERS: Visit Provider Family Medicine
DX: R23.3 Spontaneous ecchymoses
CPT/HCPCS: 85025

== ENCOUNTER 2024-10-30 14:13 | Outpatient (REF) | payer SELFPAY ==
[2024-10-30 14:32] LABS: Abs Immature Grans 0.01 10^3/uL (0.0-0.06); Absolute Basophil Count 0.06 10^3/uL (0.0-0.2); Absolute Eosinophil Count 0.15 10^3/uL (0.0-0.7); Absolute Monocyte Count 0.41 10^3/uL (0.1-0.8); Absolute Neutrophil Count 2.18 10^3/uL (1.2-6.7); Basophils % 1.2 %; Eosinophils % 3.1 %; HGB 13.2 g/dL (11.2-15.7); Immature Grans % 0.2 %; Lymphocytes % 42.8 %; MCH 30.8 pg (27.0-33.0); MCHC 34.7 % (32.0-36.0); MCV 89 fL (80-95); MPV 10.9 fL (8.0-11.0); Monocytes % 8.4 %; Neutrophils % 44.3 %; Platelet Count 149 10^3/uL (130-400); RBC 4.29 10^6/uL (3.93-5.22); RDW 11.8 % (11.7-14.6); RDW-SD 37.7 fL; WBC 4.91 10^3/uL (4.4-10.8)
[2024-11-02 07:06] LABS: Methylphenidate 150 ng/mL (Cutoff: 10); Ritalinic Acid 1302 ng/mL (Cutoff: 50)
== END 2024-10-30 14:14 | disposition home or self-care (01) ==
LOC: NCHCN 14:13
PROVIDERS: PCP Family Medicine; Visit Provider Family Medicine
DX: Z79.891 Long term (current) use of opiate analgesic (principal); F90.0 Attention-deficit hyperactivity disorder, predominantly inattentive type; D72.819 Decreased white blood cell count, unspecified
CPT/HCPCS: 80360; 85025

== ENCOUNTER 2025-05-17 09:49 | Outpatient (REF) | payer BC, SELFPAY ==
--- NOTE | 2025-05-17 07:50 | PAPFT_PTH ---
PATIENT: Davina Link LOC: [facility] U#:[id number] AGE/SX: 29/F ROOM: RE05/17/[address]: Jenise Pelaez : 1995 BED: DIS: 05/17/2025 SPEC #: [id number] RECD: 05/17/25 17:47 STATUS: JYOTI REDisha #: [id number] PRIYANK: 05/17/25 07:[address]: Jenise Pelaez DEPT: [facility] Cytology RECD BY: Luiza Shea Tissues: 1 - CX/ENDOCX FOR PAP SMEARS Procedures: PAP THIN PREP/[facility] Screening Comments: [id number]
== END 2025-05-17 09:50 | disposition home or self-care (01) ==
LOC: NCHCN 09:49
PROVIDERS: PCP Family Medicine; Visit Provider Family Medicine
DX: Z12.4 Encounter for screening for malignant neoplasm of cervix (principal)
CPT/HCPCS: 88142